=== PATIENT | male | born 1960 | race Caucasian/White ===

== ENCOUNTER 2019-06-14 18:05 | Emergency (ER) | payer BC ==
--- NOTE | 2019-06-14 19:03 | ED ---
Eye Problem HPI - General Chief complaint: Eye Problems Stated complaint: Blurred vision Time Seen by Provider: 06/14/19 18:23 Source: patient Mode of arrival: ambulatory Limitations: no limitations - History of Present Illness Initial comments: 58-year-old male patient presents to the emergency department today for evaluation of double and blurred vision. Patient states that he experiences whenever looking to the right. Patient states when he drives he can see double lines on the road. Patient states he has had some intermittent dizziness with this. Symptoms started on Wednesday. He denies any head injury or history of similar symptoms. States he did see a messaging architect on Wednesday who was unable to find a cause for his symptoms. Patient denies any headache, numbness, tingling, weakness to his extremities. States he is generally healthy with no chronic medical conditions. He does not take any medications. Patient has not seen a primary care physician for the last couple of years. Denies alcohol or drug use. Patient denies any recent rash, fever, chills, shortness breath, chest pain, abdominal pain, nausea, vomiting, diarrhea, constipation, back pain, hematuria, dysuria, urinary urgency, urinary frequency, or any other complaints. - Related Data Home Medications Medication Instructions Recorded Confirmed No Known Home Medications 06/14/19 06/14/19 Allergies Allergy/AdvReac Type Severity Reaction Status Date / Time No Known Allergies Allergy Verified 06/14/19 19:04 Review of Systems ROS Statement: Those systems with pertinent positive or pertinent negative responses have been documented in the HPI. ROS Other: All systems not noted in ROS Statement are negative. Past Medical History Past Medical History: No Reported History History of Any Multi-Drug Resistant Organisms: None Reported Additional Past Surgical History / Comment(s): dental surgery Past Psychological History: No Psychological Hx Reported Smoking Status: Current every day smoker Past Alcohol Use History: None Reported Past Drug Use History: None Reported General Exam Limitations: no limitations General appearance: alert, in no apparent distress, other (This is a well- developed, well-nourished adult male patient in no acute distress. Vital signs upon presentation are temperature 97.9F, pulse 102, respirations 20, blood pressure 131/74, pulse ox 97% on room air.) Eye exam: Present: normal appearance, PERRL, EOMI, nystagmus (Right horizontal gaze nystagmus). Absent: scleral icterus, conjunctival injection, periorbital swelling ENT exam: Present: normal exam, normal oropharynx, mucous membranes moist Respiratory exam: Present: normal lung sounds bilaterally. Absent: respiratory distress, wheezes, rales, rhonchi, stridor Cardiovascular Exam: Present: regular rate, normal rhythm, normal heart sounds. Absent: systolic murmur, diastolic murmur, rubs, gallop, clicks GI/Abdominal exam: Present: soft, normal bowel sounds. Absent: distended, tenderness, guarding, rebound, rigid Neurological exam: Present: alert, oriented X3, CN II-XII intact Psychiatric exam: Present: normal affect, normal mood Skin exam: Present: warm, dry, intact, normal color. Absent: rash Course Vital Signs 06/14/19 06/14/19 06/14/19 18:12 19:16 20:30 Temperature 97.9 F 98.1 F 97.8 F Pulse Rate 102 H 71 70 Respiratory 20 16 18 Rate Blood Pressure 131/74 108/60 121/70 O2 Sat by Pulse 97 99 97 Oximetry Medical Decision Making - Medical Decision Making 58-year-old male patient presented to the emergency department today for evaluation of monocular diplopia and intermittent dizziness. Physical examination does reveal right horizontal gaze nystagmus but is otherwise unremarkable. He is neurologically intact with no focal deficits. Labs reviewed and are unremarkable. EKG showed normal sinus rhythm. CT brain was obtained and showed no acute abnormalities. I did discuss findings and results with the patient. Be discharged home to follow-up with the primary care physician, discuss referral to neurology, discussed MRI. Return parameters were discussed in detail. He verbalizes understanding and agrees with this plan. - Lab Data Result diagrams: 06/14/19 19:05 06/14/19 19:05 Lab Results 06/14/19 06/14/19 Range/Units 19:05 19:05 WBC 11.2 H (3.8-10.6) k/uL RBC 4.89 (4.30-5.90) m/uL Hgb 14.9 (13.0-17.5) gm/dL Hct 45.1 (39.0-53.0) % MCV 92.2 (80.0-100.0) fL MCH 30.5 (25.0-35.0) pg MCHC 33.1 (31.0-37.0) g/dL RDW 12.3 (11.5-15.5) % Plt Count 239 (150-450) k/uL Neutrophils % 59 % Lymphocytes % 27 % Monocytes % 8 % Eosinophils % 2 % Basophils % 2 % Neutrophils # 6.6 (1.3-7.7) k/uL Lymphocytes # 3.0 (1.0-4.8) k/uL Monocytes # 0.9 (0-1.0) k/uL Eosinophils # 0.3 (0-0.7) k/uL Basophils # 0.2 (0-0.2) k/uL Sodium 141 (137-145) mmol/L Potassium 3.8 (3.5-5.1) mmol/L Chloride 105 (98-107) mmol/L Carbon Dioxide 27 (22-30) mmol/L Anion Gap 9 mmol/L BUN 10 (9-20) mg/dL Creatinine 0.89 (0.66-1.25) mg/dL Est GFR (CKD-EPI)AfAm >90 (>60 ml/min/1.73 sqM) Est GFR (CKD-EPI)NonAf >90 (>60 ml/min/1.73 sqM) Glucose 92 (74-99) mg/dL Calcium 9.3 (8.4-10.2) mg/dL Magnesium 2.1 (1.6-2.3) mg/dL Total Bilirubin 0.6 (0.2-1.3) mg/dL AST 21 (17-59) U/L ALT 18 L (21-72) U/L Alkaline Phosphatase 83 (38-126) U/L Total Protein 6.9 (6.3-8.2) g/dL Albumin 4.0 (3.5-5.0) g/dL - EKG Data -: EKG Interpreted by Al EKG Comments: EKG obtained at 1944 shows sinus rhythm with PACs, ventricular rate 73, CT interval 178, QRS duration 88, QT 398, QTC 438. No evidence of ST elevation or depression. - Radiology Data Radiology results: report reviewed, image reviewed CT brain without contrast was obtained. Report reviewed in its entirety. Impression by Dr. Morales shows No acute intracranial hemorrhage or midline shift. Orbits appear symmetric on CT. There is further concern this patient with visual change MRI would be recommended to evaluate for increased intracranial pressure orbital pathology. Disposition Clinical Impression: Diplopia Disposition: HOME SELF-CARE Condition: Good Instructions (If sedation given, give patient instructions): Diplopia (ED) Additional Instructions: Increase fluids. Follow-up with primary care physician for further evaluation and possible neurology referral. Return to the emergency department for any new, worsening, or concerning symptoms. Is patient prescribed a controlled substance at d/c from ED?: No Referrals: Mario Garcia MD [STAFF PHYSICIAN] - 1-2 days Time of Disposition: 20:14
[2019-06-14 19:19] LABS: Basophils # (A) 0.2 k/uL (0-0.2); Basophils % (A) 2 %; Eosinophils # (A) 0.3 k/uL (0-0.7); Eosinophils % (A) 2 %; HCT 45.1 % (39.0-53.0); HGB 14.9 gm/dL (13.0-17.5); Lymphocytes % (A) 27 %; MCH 30.5 pg (25.0-35.0); MCHC 33.1 g/dL (31.0-37.0); MCV 92.2 fL (80.0-100.0); Mean Platelet Volume 7.9; Monocytes # (A) 0.9 k/uL (0-1.0); Monocytes % (A) 8 %; Neutrophils # (A) 6.6 k/uL (1.3-7.7); Neutrophils % (A) 59 %; Platelet Count 239 k/uL (150-450); RBC 4.89 m/uL (4.30-5.90); RDW 12.3 % (11.5-15.5); WBC 11.2 k/uL (3.8-10.6)
[2019-06-14 19:28] LABS: ALT 18 U/L (21-72); AST 21 U/L (17-59); African American GFR (CKD) >90 (>60 ml/min/1.73 sqM); Alkaline Phosphatase 83 U/L (38-126); Anion Gap 9 mmol/L; Blood Urea Nitrogen 10 mg/dL (9-20); Calcium 9.3 mg/dL (8.4-10.2); Carbon Dioxide 27 mmol/L (22-30); Chloride 105 mmol/L (98-107); Glucose 92 mg/dL (74-99); Magnesium 2.1 mg/dL (1.6-2.3); Potassium 3.8 mmol/L (3.5-5.1); Sodium 141 mmol/L (137-145); Total Bilirubin 0.6 mg/dL (0.2-1.3); Total Protein 6.9 g/dL (6.3-8.2)
--- NOTE | 2019-06-14 19:56 | CT ---
EXAMINATION TYPE: CT brain wo con DATE OF EXAM: 06/14/2019 COMPARISON: None HISTORY: Blurry vision CT DLP: 1012.7 mGycm Automated exposure control for dose reduction was used. TECHNIQUE: CT scan of the head is performed without contrast. FINDINGS: There is no acute intracranial hemorrhage, mass effect, or midline shift identified. No s uspicious extra axial fluid collection is seen. The ventricles and sulci are within normal limits in size. There is scant mucosal thickening within the ethmoid sinuses. The globes are intact and the re maining visualized sinuses are clear. Lenses are symmetric and in place. Extraocular muscles are also symmetric. Optic nerves are unremarkable. No preseptal or post septal inflammatory fat stranding. IMPRESSION: 1. No acute intracranial hemorrhage or midline shift. 2. Orbits appear symmetric on CT. There is further concern in this patient with visual change MRI wou ld be recommended to evaluate for increased intracranial pressure or orbital pathology.
[2019-06-14 20:44] VITALS: BP 121/70; PULSE 70; RESP 18; TEMP 97.8
== END 2019-06-14 20:30 | disposition home or self-care (01) ==
LOC: EC 18:05
DX: H53.2 Diplopia (principal); H55.09 Other forms of nystagmus; F17.200 Nicotine dependence, unspecified, uncomplicated
CPT/HCPCS: 36415; 70450; 80053; 83735; 85025; 93005; 99284

== ENCOUNTER → 2024-07-17 | Outpatient (CLI) | payer MEDICARE ==
--- NOTE | 2024-07-17 15:45 | CTL ---
EXAMINATION TYPE: CT Low Dose Lung DATE OF EXAM ORDERED: 07/17/2024 COMPARISON: None CLINICAL INDICATION: Male, 63 years old with history of Z12.2 ENCNTR SCREEN FOR MALIGNANT NEOPLASM OF RE; PHH, Personal hx nicotine dependence 1 ppd x 44 years current smoker no concerns, Lung cancer s creening, History of Smoking/tobacco use. TECHNIQUE: Low dose computed tomography scan was performed through the chest at 1 mm thick sections a nd reconstructed images in multiple planes at 1 mm and [address] DLP: [address] CTDI: 1.95 mGy Automated exposure control for dose reduction was used. CT DIAGNOSTIC QUALITY: Satisfactory FINDINGS: There is no suspicious lung mass or nodule. There is no abnormal airspace consolidation or abnormal interstitial density. There is no pleural effusion or pneumothorax. The great vessels chest are normal and is no mediastinal, hilar or axillary adenopathy. Limited scanning through the upper abdomen reveals nonobstructing 7 mm left renal calcification. No focal osseous lesions are seen. IMPRESSION: 1. Lung RADS category 1 negative. Continue routine screening yearly intervals. 2. No acute cardiopulmonary disease. 3. Nonobstructing 7 mm left renal calcification. [facility], , 07/17/2024 3:43 PM
== END | disposition home or self-care (01) ==
LOC: RADCTMAIN 14:43
PROVIDERS: ATTEND Family Medicine
CPT/HCPCS: 71271

== ENCOUNTER → 2024-07-27 | Outpatient (CLI) | payer MEDICARE ==
--- NOTE | 2024-07-28 21:52 | XR ---
EXAMINATION TYPE: XR Hip Complete RT DATE OF EXAM: 07/27/2024 2:18 PM COMPARISON: None. CLINICAL INDICATION: Male, 63 years old with history of [id number] RT HIP/KNEE PAIN,LBP, TECHNIQUE: XR Hip Complete RT view(s) obtained. FINDINGS: Right femoral head articulates with the acetabulum. There is complete loss of joint space. Acetabular and femoral head spurring is present. There is sclerosis at the joint space. Superior acetabular spu r fracture is not excluded. Consider CT for additional evaluation. No additional areas suspicious fo r fracture IMPRESSION: 1. Superior acetabular spur fracture not excluded. Consider CT for additional evaluation. 2. Advanced degenerative right hip joint space changes [facility], , 07/28/2024 9:50 PM
--- NOTE | 2024-07-28 23:00 | XR ---
EXAMINATION TYPE: XR knee complete RT DATE OF EXAM: 07/27/2024 2:18 PM COMPARISON: None. CLINICAL INDICATION: Male, 63 years old with history of [id number] RT HIP/KNEE PAIN,LBP, TECHNIQUE: XR knee complete RT view(s) obtained. FINDINGS: Three-view right knee. Patellofemoral joint space is preserved. Medial and lateral compartments are p reserved. No joint effusion is evident. No acute fracture or dislocation. Large anterior superior pat ellar spur is noted. IMPRESSION: 1. No acute osseous abnormality right knee [facility], Workstation: [facility], 07/28/2024 10:58 PM
--- NOTE | 2024-07-28 23:02 | XR ---
EXAMINATION TYPE: XR lumbosacral spine min 4V DATE OF EXAM: 07/27/2024 2:18 PM COMPARISON: None. CLINICAL INDICATION: Male, 63 years old with history of [id number] RT HIP/KNEE PAIN,LBP, TECHNIQUE: XR lumbosacral spine min 4V view(s) obtained. FINDINGS: 5 view lumbar spine. Narrowing of the L4-5 L5-S1 disc height is present. Some spondylosis is present. No spondylolytic defects are evident. There 5 lumbar-type vertebral bodies. Pedicles are intact. Not e is made there may be a inferior pole left renal stone measuring 1.2 cm. IMPRESSION: 1. Mild degenerative disc changes lower lumbar spine 2. Possible left renal stone [facility], Workstation: [facility], 07/28/2024 10:59 PM
== END | disposition home or self-care (01) ==
LOC: RADXRYALE 13:50
PROVIDERS: ATTEND Physician Assistant
DX: M51.360 Other intervertebral disc degeneration, lumbar region with discogenic back pain only (principal); M16.11 Unilateral primary osteoarthritis, right hip; M25.561 Pain in right knee
CPT/HCPCS: 72110; 73502

== ENCOUNTER 2024-11-08 12:27 | Observation (INO) | payer MEDICARE ==
[~2024-11-08 12:27] MED LIST: TRANEXAMIC 1,000 MG/100ML-NACL 1,000 MG in SALINE 1 100ML.BAG IV PRN; TRANEXAMIC 1,000 MG/100ML-NACL 1,000 MG in SALINE 1 100ML.BAG IVPB PRN
[2024-11-08] MEDS ORDERED: HYDROmorphone 0.5 MG/0.5 ML SYRINGE IVP PRN ×4 (12:39→16:01)
[2024-11-08] MEDS: LACTATED RINGERS 1,000 ML IV ONE ×2 (12:52→15:50)
[2024-11-08] MEDS: oxyCODONE ER 10 MG TAB.ER.12H PO PRN (13:28)
[2024-11-08] MEDS: DOCUSATE 100 MG CAP PO PRN (13:28)
[2024-11-08] MEDS: ACETAMINOPHEN TAB 500 MG TAB PO PRN (13:29)
[2024-11-08] MEDS: LACTATED RINGERS 1,000 ML IV SCH (13:31)
[2024-11-08] MEDS: DEXAMETHASONE SOD PHOSPHATE 10 MG/ML 1 ML VIAL IV PRN (13:32)
[2024-11-08] MEDS: ONDANSETRON 4 MG/2 ML VIAL IVP PRN (13:32)
[2024-11-08] MEDS: KETOROLAC 15 MG/ML 1 ML VIAL IVP PRN (13:32)
[2024-11-08] MEDS: FAMOTIDINE 20 MG/2 ML VIAL IVP PRN (13:32)
[2024-11-08] MEDS: MIDAZOLAM 2 MG/2 ML VIAL IV ONE (13:41)
[2024-11-08] MEDS ORDERED: fentaNYL (PF) 50 MCG/ML 2 ML AMP ONE (14:01)
[2024-11-08] MEDS ORDERED: PHENYLEPHRINE 10 MG/ML VIAL ONE (14:01)
[2024-11-08] MEDS ORDERED: KETAMINE HCL IN 0.9 % NACL 50 MG/5 ML SYRINGE ONE (14:01)
[2024-11-08] MEDS ORDERED: PROPOFOL 10 MG/ML 20 ML VIAL IV ONE (14:01)
[2024-11-08] MEDS ORDERED: TRANEXAMIC 1,000 MG/100ML-NACL PREMIX BAG ONE (14:01)
[2024-11-08] MEDS ORDERED: GLYCOPYRROLATE 0.2 MG/ML 2 ML VIAL ONE (14:01)
[2024-11-08] MEDS ORDERED: ROCURONIUM 10 MG/ML (5 ML VIAL) IV ONE (14:01)
[2024-11-08] MEDS ORDERED: LIDOCAINE 1% INJ 10MG/ML (20 ML MDV) ONE (14:01)
[2024-11-08] MEDS ORDERED: SUCCINYLCHOLINE CHLORIDE 200 MG/10 ML VIAL IV ONE (14:01)
[2024-11-08] MEDS ORDERED: DEXAMETHASONE SOD PHOSPHATE 4 MG/ML 1 ML VIAL ONE (14:01)
[2024-11-08] MEDS ORDERED: NEOSTIGMINE 1 MG/ML 10 ML VIAL ONE (14:01)
[2024-11-08] MEDS ORDERED: ROPIVACAINE 5 MG/ML 30 ML VIAL ONE (14:01)
[2024-11-08] MEDS: ROPIVACAINE/EPI/CLONIDINE/KET 50 ML SYRINGE MISCELLANE PRN (14:38)
[2024-11-08] MEDS ORDERED: HYDROcodone/APAP 5-325MG 1 EACH TAB PO PRN (16:01)
[2024-11-08] MEDS ORDERED: MAGNESIUM HYDROXIDE 2,400 MG/30 ML CUP PO PRN (16:01)
[2024-11-08] MEDS ORDERED: diazePAM 5 MG TAB PO PRN ×2 (16:01)
[2024-11-08] MEDS ORDERED: TEMAZEPAM 15 MG CAP PO PRN (16:01)
[2024-11-08] MEDS ORDERED: NALOXONE 0.4 MG/ML 1 ML VIAL IV PRN (16:01)
[2024-11-08] MEDS ORDERED: hydrOXYzine pamoate 25 MG CAP PO PRN (16:01)
--- NOTE | 2024-11-08 16:01 | P.OP ---
Date of Procedure: 11/08/24 Preoperative Diagnosis: Severe right hip osteoarthritis Postoperative Diagnosis: Same Procedure(s) Performed: Right direct anterior total hip arthroplasty Implants: 1. Thomson Trident II Acetabular Cup, Size #54 2. Gwendolyn Insignia Size #6 Femoral Stem, High Offset 3. Biolox delta femoral head, 36 mm, +0 mm neck Anesthesia: GETA, regional Surgeon: Zachary Jerez Cone Winder #1: John Caballero Estimated Blood Loss (ml): 300 IV fluids (ml): 800 Pathology: none sent Condition: stable Disposition: PACU Indications for Procedure: I had a long discussion with the patient in the office on the potential risks and complications of an elective total hip replacement through a direct anterior approach. Risks discussed include, but are certainly not limited to, risks from anesthesia, superficial infection requiring local wound care or antibiotics, deep anna-prosthetic joint infection and the treatment required to eradicate infection, intraoperative fracture, postoperative periprosthetic fracture, damage to local blood vessels or nerves particularly the lateral femoral cutaneous nerve, delayed wound healing requiring local wound care or possibly surgical debridement, hip dislocation, leg length discrepancy, soft tissue irritation around the total hip implant such as iliopsoas tendinitis or trochanteric bursitis, wear and osteolysis from the implants, squeaking or audible noises, groin pain, thigh pain, heterotopic ossification, stiffness, aseptic loosening of the implants, dissatisfaction with surgical outcome, need for revision surgery, DVT, PE, swelling of the operative extremity, acute coronary event, stroke, failure to thrive, and possibly loss of life or limb. The patient understands that while these are the most common complications after an elective hip replacement there are certainly other less common complications possible. They were given ample time to ask questions regarding the potential complications of a hip replacement. Following our discussion the patient pro vided their verbal and written consent to go forward with an elective total hip replacement. The patient has a history of smoking. He was able to quit 3 months prior to surgery. He assured me that he has not been smoking for 3 months. He understands the ramifications if he resumes smoking particularly delayed wound healing and infection. He promised me he would not smoke in the postoperative period. Operative Findings: Severe right hip osteoarthritis. There were circumferential osteophytes surrounding the acetabulum. After the cup was placed the osteophytes were carefully removed. Description of Procedure: The patient was identified in the preoperative holding area and the correct hip was marked with my initials. I reviewed the procedure and consent with the patient. All of their questions were answered. The patient was then brought back into the operating room by anesthesia. While on the [facility] anesthesia was administered by the anesthesia team. Preoperative antibiotics and tranexamic acid were also given. After the patient was under anesthesia I examined their ankles to determine their preoperative leg length discrepancy. The skin over the anterior aspect of the hip was shaved to remove hair over the site of planned incision. Both feet and ankles were padded with webril and boots for the Rankin were applied. The patient was then carefully transferred onto the Rankin table. A perineal post was immediately placed. The arms were placed on arm holders and were well-padded. Both boots were secured to the spars on the Rankin table. The patient was positioned so that the pelvis was centered over the post. Nonsterile drapes were applied. A timeout was performed identifying the correct patient, operative extremity, and procedure. At this point fluoroscopy was brought in to take preoperative images of the pelvis and operative hip. Using the standing AP pelvis from the office as a template, a comparable image was obtained with fluoroscopy. A metallic bar was used to create a bi-ischial line for use as a reference to leg length adjustments during the procedure. Global offset was also measured on both the operative and nonoperative leg. Fluoroscopy was then brought out and a pre-scrub using a chlorhexidine scrub brush was performed. The operative limb was then prepped and draped in the standard sterile fashion. An anterior longitudinal incision was made lateral and distal to the ASIS. The skin and subcutaneous tissues were incised sharply. The underlying tensor fascia was identified and incised in its midportion. The fascia was dissected free from the underlying muscle and the muscle belly was retracted. A blunt tipped cobra retractor was placed over the superior neck under the muscle fibers of the gluteus minimus. The deep enveloping fascia of the tensor was incised. The anterior leash of vessels were then identified and cauterized. The fascia between the rectus and the capsule was then incised and the pre-capsular fat was excised. A second Cobra was placed inferior to the neck. The interval between the rectus and iliocapsularis and the hip capsule was developed and a retractor was placed carefully over the anterior rim of the acetabulum. A T-shaped anterior capsulotomy was performed. The superior capsular leaflet was left in place in the inferior capsular flap was excised. The Cobra retractors were placed intracapsularly. We then made a femoral neck osteotomy according to preoperative and intraoperative templating and confirmed the level of the osteotomy using fluoroscopic imaging. The femoral head was removed, passed off to the back table, and sized. The superior capsular flap was excised. Retractors were placed circumferentially exposing the acetabulum. We then circumferentially debrided the acetabulum free of labrum and osteophytes. The pulvinar was removed to fully visualize the cotyloid fossa. We then sequentially reamed to achieve peripheral fit and excellent bleeding subchondral bone. The socket was thoroughly irrigated. The acetabular component was impacted into the appropriate position using fluoroscopy to guide version, inclination, and depth of insertion taking care to have a comparable image of the AP pelvis to the standing image taken in the office. An excellent press-fit was achieved and final position was confirmed using fluoroscopy. The press fit was augmented with a bony cancellus dome screw. The liner was then impacted into the socket. Attention was then turned to the femur. The remnant dorsal lateral capsule was excised. The short external rotators were visible and protected. A bone hook was used to confirm appropriate translation of the trochanter away from the acetabulum. The leg was then extended and adducted and the bone hook was used to elevate the femur for broaching. A box osteotome and blunt tipped canal sound was then utilized to gain access to the femoral canal. We then sequentially broached the femur in appropriate anteversion until excellent torsional stability was achieved. The neck cut was brought flush to the trial broach with a calcar planar. A trial neck and head were then placed onto the broach and the hip was atraumatically reduced under direct visualization. External rotation to 90 was performed to assess stability. Fluoroscopy was brought in. An AP and lateral fluoroscopic image of the proximal femur was obtained to assess position and fill of the trial broach. An AP of the pelvis was then obtained and matched to the preoperative image taken. A bi-ischial bar was then placed and measurements were taken to assess changes in length and offset. The hip was then carefully dislocated, the proximal femur was exposed, and the trial implants were removed. The wound and proximal femur was thoroughly irrigated using sterile saline and pulsatile lavage. The final femoral implant was dispensed and gently tapped into place generating an excellent press-fit. The trunnion was cleansed and the final head was tapped into place to engage the Fontanez taper. The acetabulum was irrigated and visualized to be free of debris. The hip was carefully reduced. Stability was checked clinically with external rotation to 90 and there was no evidence of instability. Final fluoroscopic images were taken. The wound was then thoroughly irrigated and soaked with a dilute Betadine rinse for 3 minutes. 3 L of sterile saline was irrigated through the wound using pulsatile lavage. Local anesthetic cocktail was injected into the soft tissues around the surgical f ield. The wound was then closed in layers. A sterile dressing was placed over the surgical incision. The drapes were taken down and the patient was carefully transferred off of the Rankin table. Following removal of the boots the leg lengths felt acceptable. The patient was then taken to recovery room having tolerated the procedure well. John Caballero PA-C was required as a skilled assistant dean due to the complexity of surgery for patient positioning, draping, exposure, retraction, closure of wound and application of dressing. PLAN: The patient can weight-bear as tolerated on the operative extremity. 2 doses of postoperative antibiotics. DVT prophylaxis with aspirin 81 mg twice a day based on preoperative risk stratification. Physical therapy for gait training.
--- NOTE | 2024-11-08 16:22 | XR ---
Intraoperative/procedural fluoroscopic services were provided for right total hip arthroplasty. Total fluoroscopy time is 52.8 seconds with a total of 8 submitted images to PACS. Total DAP 3.7266 Gycm2. Please see the operative note for further details. [facility], , 11/08/2024 4:19 PM
[2024-11-08] MEDS: SODIUM CHLORIDE 0.9% 1,000 ML IV SCH (17:33)
[2024-11-08] MEDS: HYDROcodone/APAP 10-325MG 1 EACH TAB PO PRN (17:34)
--- NOTE | 2024-11-08 20:29 | P.HPIM ---
History of Present Illness H&P Date: 11/08/24 Chief Complaint: Right hip surgery Very pleasant 64-year-old patient who follows with Dr. Olga Lidia Bear. Patient has undergone right total hip arthroplasty. Postprocedure laying in bed. Pain controlled. No nausea vomiting. Denies any cardiac history. Gracie acosta has arthritis in other joints. Hyperlipidemia. And stopped smoking about 3 months ago. Denies any respiratory symptoms. Review of systems: GEN.: None EYES: None HEENT: None NECK: None RESPIRATORY: None CARDIOVASCULAR: None GASTROINTESTINAL: None GENITOURINARY: None MUSCULOSKELETAL: Multiple joint pains including the left hip e LYMPHATICS: None HEMATOLOGICAL: None PSYCHIATRY: None NEUROLOGICAL: None Social history: Lives with a friend, whose care patient takes off. Smoked a pack a day for close to 40 years. Stopped in July 2024. 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 Physical examination: VITAL SIGNS: 98.6, 79, 16, 1 4586, 97% room air GENERAL: BMI 29.5, awake laying in bed. EYES: Pupils equal. Conjunctiva shaniqua l. HEENT: External appearance of nose and ears normal, oral cavity grossly normal. A lot of facial hair in form of lee. NECK: JVD not raised; masses not palpable. HEART: First and second heart sounds are normal; no edema. LUNGS: Respiratory rate normal; clear to auscultation. ABDOMEN: Soft, nontender, liver spleen not palpable, no masses palpable. PSYCH: Alert and oriented x3; mood and affect shaniqua l. MUSCULOSKELETAL:No Clubbing/cyanosis;muscles-grossly intact. Dressing over the right thigh incision site. OA in other joints. NEUROLOGICAL: Cranial nerves grossly intact; no facial asymmetry, power and sensation grossly intact. LYMPHATICS: No lymph nodes palpable in the axilla and neck INVESTIGATIONS, reviewed in the clinical context: November 03, 2024: White count 11.7 hemoglobin 15.6 platelets 261 sodium 139 potassium 5.1 creatinine 1.0 Assessment plan: -Anterior, right total hip arthroplasty Aspirin 81 twice daily for DVT prophylaxis. Received IV cefazolin for infection prophylaxis. Analgesics in place. -Primary osteoarthritis of multiple joints. Also due for surgery in the left hip down the road. Pain medication as needed -Hyperlipidemia Lipitor Care was discussed with the patient. Questions answered. Thank you Dr. Jerez Past Medical History Past Medical History: Hyperlipidemia Additional Past Medical History / Comment(s): "right hip is worn out" History of Any Multi-Drug Resistant Organisms: None Reported Additional Past Surgical History / Comment(s): dental surgery, colonoscopy Past Anesthesia/Blood Transfusion Reactions: No Reported Reaction Past Psychological History: No Psychological Hx Reported Smoking Status: Former smoker Past Alcohol Use History: None Reported Additional Past Alcohol Use History / Comment(s): quit smoking 07/2024 - smoked ppd x 43 yrs. Past Drug Use History: None Reported Medications and Allergies Home Medications Medication Instructions Recorded Confirmed Type Atorvastatin [Lipitor] 20 mg PO HS 11/02/24 11/08/24 History Allergies Allergy/AdvReac Type Severity Reaction Status Date / Time No Known Allergies Allergy Verified 11/08/24 13:09 Physical Exam Vitals: Vital Signs Temp Pulse Pulse Resp BP Pulse Ox 11/08/24 17:53 98.6 F 79 16 145/86 97 11/08/24 17:04 82 18 150/99 96 11/08/24 16:49 79 17 160/85 100 11/08/24 16:34 79 14 126/65 99 11/08/24 16:19 97.8 F 89 12 141/75 98 11/08/24 13:46 70 16 142/82 99 11/08/24 13:03 98.6 F 72 16 154/81 98 Intake and Output 11/08/24 11/08/24 11/08/24 06:59 14:59 22:59 Intake Total 1050 640 Output Total 300 Balance 1050 340 Intake: IV 1050 200 Intake, IV Titration 200 Amount Sodium Chloride 0.9% 1, 200 000 ml @ 100 mls/hr IV . Q10H [facility] Rx#:[id number] Oral 240 Output: Estimated Blood Loss 300 Other: Weight 93.2 kg 93.2 kg Thrombosis Risk Factor Assmnt - Choose All That Apply Other Risk Factors: Yes Each Risk Factor Represents 2 Points: Age 61-74 years Each Risk Factor Represents 5 Points: Elective major lower extremity arthoplasty Thrombosis Risk Factor Assessment Total Risk Factor Score: 7 Thrombosis Risk Factor Assessment Level: High Risk
[2024-11-08] MEDS: SENNOSIDES-DOCUSATE SODIUM 1 EACH TAB PO SCH (21:20)
[2024-11-08] MEDS: ASPIRIN 81 MG PO SCH (21:20)
[2024-11-08] MEDS: ATORVASTATIN 20 MG TAB PO SCH (21:20)
--- NOTE | 2024-11-09 07:58 | P.PN ---
Subjective Doing relatively well this morning. He states that yesterday after surgery he had no pain likely due to the block and was walking around the [place]. During the night he reached over in bed and felt a minor pop in the hip. He had some increased pain but is doing well this morning. He has no other complaints. Objective - Vital Signs Vital signs: Vital Signs Temp 97.7 F 11/09/24 01:50 Pulse 84 11/09/24 01:50 Resp 18 11/09/24 01:50 BP 123/74 11/09/24 01:50 Pulse Ox 97 11/09/24 01:50 FiO2 Intake & Output 11/08/24 11/09/24 11/09/24 18:59 06:59 18:59 Intake Total 1690 480 Output Total 300 900 Balance 1390 -420 Weight 93.2 kg Intake: IV 1250 Intake, IV Titration 200 Amount Sodium Chloride 0.9% 1, 200 000 ml @ 100 mls/hr IV . Q10H [facility] Rx#:[id number] Oral 240 480 Output: Urine 900 Straight 900 Estimated Blood Loss 300 - Exam Patient is resting comfortably in bed. He is alert and able to answer questions. On inspection leg lengths appear symmetric. There is a dressing over the anterior aspect of the right hip. There is no drainage or strikethrough. There is mild swelling. Femoral nerve function is intact. The patient is able to actively plantarflex and dorsiflex his ankle and his toes. Assessment and Plan Assessment: Postoperative day #1 status post right direct anterior total hip arthroplasty Former smoker, quit 3 to 4 months ago Plan: 1. Weightbearing as tolerated on the operative extremity. Up with assistance and a walker. 2. DVT prophylaxis with aspirin 81 mg twice a day 3. Physical therapy for gait training and mobilization 4. Leave surgical dressing in place. 5. Internal medicine for perioperative medical management 6. Disposition: The patient lives alone and would like to discharge to subacute nursing or rehab. We discussed this would depend on how he does with physical therapy. We will see how he does today and make a decision on discharge tomorrow. He understands the possibility of going home with home health care as he is doing relatively well at this time.
[2024-11-09 08:53] LABS: HCT 35.3 % (39.6-50.0); HGB 11.9 g/dL (13.0-17.0); MCH 31.5 pg (27.0-32.0); MCHC 33.7 g/dL (32.0-37.0); MCV 93.4 FL (80.0-97.0); Mean Platelet Volume 11.7 FL (9.5-12.2); NRBC Per 100 WBC 0 X 10*3/uL (0.00-0.01); Platelet Count 230 X 10*3/uL (140-440); RBC 3.78 X 10*6/uL (4.40-5.60); RDW 12.3 % (11.5-14.5); WBC 23.02 X 10*3/uL (4.50-10.00)
[2024-11-09 10:00] LABS: Basophils # (A) 0.04 X 10*3/uL (0.00-0.10); Basophils % (A) 0.2 %; Eosinophils # (A) 0.09 X 10*3/uL (0.04-0.35); Eosinophils % (A) 0.4 %; Lymphocytes # (A) 1.14 X 10*3/uL (0.90-5.00); Monocytes # (A) 1.75 X 10*3/uL (0.20-1.00); Monocytes % (A) 7.6 %; Neutrophils # (A) 19.77 X 10*3/uL (1.80-7.70); Neutrophils % (A) 85.8 %
[2024-11-09] MEDS: MULTIVITAMINS, THERA 1 EACH TAB PO SCH (11:02)
--- NOTE | 2024-11-09 17:25 | P.ANPRN ---
Procedure Note - Anesthesia - Nerve Block Performed Right Flores Single Time Out Performed: Yes Date of Procedure: 11/08/24 Procedure Start Time: 13:40 Procedure Stop Time: 13:46 Location of Patient: PreOp Indication: Acute Post-Operative Pain, Requested by Surgeon Sedation Type: Sedate with meaningful contact maintained Preparation: Sterile Prep Position: Supine Needle Types: Pajunk Needle Gauge: 21 Ultrasound used to visualize needle placement: Yes Ultrasound used to observe medication spread: Yes Blood Aspirated: No Pain Paresthesia on Injection Noted: No Resistance on Injection: Normal Image Stored and Saved: Yes Events: Uneventful and Well Tolerated (Ropivacaine 0.5% 20 cc was dexamethasone 4 mg)
--- NOTE | 2024-11-09 17:36 | P.PN ---
Progress Note - Text Progress Note Date: 11/09/24 Chief Complaint: Right hip surgery Very pleasant 64-year-old patient who follows with Dr. Olga Lidia Bear. Patient has undergone right total hip arthroplasty. Postprocedure laying in bed. Pain controlled. No nausea vomiting. Denies any cardiac history. Patient has arthritis in other joints. Hyperlipidemia. And stopped smoking about 3 months ago. Denies any respiratory symptoms. November 09: Did ambulate. Pain is present. Tolerated diet. No dizziness no lightheadedness. Active Medications Hydrocodone Bitart/Acetaminophen (Hydrocodone/Apap 5-325mg 1 Each Tab) 1 each PO Q6HR PRN PRN Reason: Pain Scale 1 to 5 Stop: 12/08/24 16:00 Hydrocodone Bitart/Acetaminophen (Hydrocodone/Apap 10-325mg 1 Each Tab) 1 each PO Q6H PRN PRN Reason: Pain Scale 6 to 10 Stop: 12/08/24 16:00 Last Admin: 11/09/24 11:02 Dose: 1 each Aspirin (Aspirin 81 Mg) 81 mg PO BID [facility] Stop: 12/08/24 20:59 Last Admin: 11/09/24 08:10 Dose: 81 mg Atorvastatin Calcium (Atorvastatin 20 Mg Tab) 20 mg PO HS [facility] Last Admin: 11/08/24 21:20 Dose: 20 mg Diazepam (Diazepam 5 Mg Tab) 2.5 mg PO Q8HR PRN PRN Reason: Mild Spasms Stop: 12/08/24 16:00 Diazepam (Diazepam 5 Mg Tab) 5 mg PO Q8HR PRN PRN Reason: Moderate to Severe Spasms Stop: 12/08/24 16:00 Hydromorphone HCl (Hydromorphone 0.5 Mg/0.5 Ml Syringe) 0.125 mg IVP Q3HR PRN PRN Reason: Pain Scale 1 to 3 Stop: 12/08/24 16:00 Hydromorphone HCl (Hydromorphone 0.5 Mg/0.5 Ml Syringe) 0.5 mg IVP Q3HR PRN PRN Reason: Pain Scale 7 to 10 Stop: 12/08/24 16:00 Hydromorphone HCl (Hydromorphone 0.5 Mg/0.5 Ml Syringe) 0.25 mg IVP Q3HR PRN PRN Reason: Pain Scale 4 to 6 Stop: 12/08/24 16:00 Hydroxyzine Pamoate (Hydroxyzine Pamoate 25 Mg Cap) 25 mg PO Q4HR PRN PRN Reason: Nausea, Anxiety, Pain Control Stop: 12/08/24 16:00 Lactated Ringer's (Lactated Ringers) 1,000 mls @ 20 mls/hr IV .Q24H [facility] Stop: 12/08/24 12:38 Last Admin: 11/09/24 12:45 Dose: Not Given Sodium Chloride (Saline 0.9%) 1,000 mls @ 100 mls/hr IV .Q10H [facility] Stop: 12/08/24 16:14 Last Admin: 11/09/24 12:45 Dose: Not Given Magnesium Hydroxide (Magnesium Hydroxide 2,400 Mg/30 Ml Cup) 2,400 mg PO DAILY PRN PRN Reason: Constipation Stop: 12/08/24 16:00 Multivitamins (Multivitamins, Thera 1 Each Tab) 1 each PO DAILY@1200 [facility] Stop: 12/09/24 11:59 Last Admin: 11/09/24 11:02 Dose: 1 each Naloxone HCl (Naloxone 0.4 Mg/Ml 1 Ml Vial) 0.2 mg IV Q2M PRN PRN Reason: Opioid Reversal Stop: 12/08/24 16:00 Senna/Docusate Sodium (Sennosides-Docusate Sodium 1 Each Tab) 2 each PO HS [facility] Stop: 12/08/24 20:59 Last Admin: 11/08/24 21:20 Dose: 2 each Temazepam (Temazepam 15 Mg Cap) 15 mg PO HS PRN PRN Reason: Insomnia Stop: 12/08/24 16:00 Social history: Lives with a friend, whose care patient takes off. Smoked a pack a day for close to 40 years. Stopped in July 2024. 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 Physical examination: VITAL SIGNS: 98.1, 76, 16, 124/74, 97% room air GENERAL: BMI 29.5, awake laying in bed. EYES: Pupils equal. Conjunctiva shaniqua l. HEENT: External appearance of nose and ears normal, oral cavity grossly normal. A lot of facial hair in form of lee. NECK: JVD not raised; masses not palpable. HEART: First and second heart sounds are normal; no edema. LUNGS: Respiratory rate normal; clear to auscultation. ABDOMEN: Soft, nontender, liver spleen not palpable, no masses palpable. PSYCH: Alert and oriented x3; mood and affect shaniqua l. MUSCULOSKELETAL:No Clubbing/cyanosis;muscles-grossly intact. Dressing over the right thigh incision site. OA in other joints. INVESTIGATIONS, reviewed in the clinical context: November 09: White count 23.0 hemoglobin 11.9 platelets 230 November 03, 2024: White count 11.7 hemoglobin 15.6 platelets 261 sodium 139 potassium 5.1 creatinine 1.0 Assessment plan: -Anterior, right total hip arthroplasty Aspirin 81 twice daily for DVT prophylaxis. Received IV cefazolin for infection prophylaxis. Analgesics in place. -Acute postprocedure blood loss anemia expected from surgery IV Ferrlecit. Oral iron -Leukocytosis, likely reactive from surgery. No clinical evidence of infection Denies any respiratory/urinary symptoms -Primary osteoarthritis of multiple joints. Also due for surgery in the left hip down the road. Pain medication as needed -Hyperlipidemia Lipitor Discussed Thank you Dr. Jerez Past Medical History Past Medical History: Hyperlipidemia Additional Past Medical History / Comment(s): "right hip is worn out" History of Any Multi-Drug Resistant Organisms: None Reported Additional Past Surgical History / Comment(s): dental surgery, colonoscopy Past Anesthesia/Blood Transfusion Reactions: No Reported Reaction Past Psychological History: No Psychological Hx Reported Smoking Status: Former smoker Past Alcohol Use History: None Reported Additional Past Alcohol Use History / Comment(s): quit smoking 07/2024 - smoked ppd x 43 yrs. Past Drug Use History: None Reported
[2024-11-09] MEDS: SODIUM FERRIC GLUCONAT-SUCROSE 125 MG in SODIUM CHLORIDE 0.9% 100 ML IVPB SCH (17:58)
[2024-11-09 19:58] VITALS: RESP 18
[2024-11-10 03:38] LABS: Basophils # (A) 0.1 k/uL (0-0.2); Basophils % (A) 0 %; Eosinophils # (A) 0.1 k/uL (0-0.7); Eosinophils % (A) 0 %; HCT 33.7 % (39.0-53.0); HGB 11.4 gm/dL (13.0-17.5); Lymphocytes # (A) 2.7 k/uL (1.0-4.8); Lymphocytes % (A) 16 %; MCH 31.9 pg (25.0-35.0); MCHC 33.8 g/dL (31.0-37.0); MCV 94.6 fL (80.0-100.0); Mean Platelet Volume 8.7; Monocytes # (A) 1.8 k/uL (0-1.0); Monocytes % (A) 11 %; Neutrophils # (A) 11.5 k/uL (1.3-7.7); Neutrophils % (A) 70 %; Platelet Count 211 k/uL (150-450); RBC 3.57 m/uL (4.30-5.90); RDW 12.6 % (11.5-15.5); WBC 16.3 k/uL (3.8-10.6)
[2024-11-10 04:12] LABS: African American GFR (CKD) >90 (>60 ml/min/1.73 sqM); Anion Gap 5 mmol/L; Blood Urea Nitrogen 25 mg/dL (9-20); Calcium 8.9 mg/dL (8.4-10.2); Carbon Dioxide 27 mmol/L (22-30); Chloride 105 mmol/L (98-107); Glucose 115 mg/dL (74-99); Non-African American GFR(CKD) >90 (>60 ml/min/1.73 sqM); Potassium 4.2 mmol/L (3.5-5.1); Sodium 137 mmol/L (137-145)
[2024-11-10 07:55] VITALS: BP 118/72; PULSE 76; TEMP 98
--- NOTE | 2024-11-10 09:21 | P.DS ---
Providers Date of admission: 11/08/24 12:28 Attending physician: Zachary Jerez Consults: 11/08/24 17:50 Consult Physician Routine Consulting Provider: Jose Luis Reynoso Consult Reason/Comments: post op medical management Do you want consulting provider notified?: Yes Primary care physician: Olga Lidia Bear MD Hospital Course: This is a 64-year-old patient, with past medical history of severe right hip osteoarthritis, who failed nonsurgical conservative management. On 11/08/2024 the patient presented to the [facility] pre-op department for scheduled right direct anterior total hip arthroplasty with Dr. Jerez. The patient tolerated the procedure well. The patient was transferred to the orthopedic floor. The patient had no acute events over night. The patient's pain has been well-controlled. Patient was examined at bedside this morning. Patient is resting comfortably in bed. No apparent distress. They are awake, alert and able to answer questions. On inspection the right surgical hip dressing is intact, there is no drainage or strikethrough. The skin surrounding the dressing is free of erythema. There is mild swelling in the operative thigh. Operative femoral nerve function is intact. The operative calf is soft to compression. The patient is able to actively plantarflex and dorsiflex their operative ankle and toes. Their operative foot appears well perfused with capillary refill under 2 seconds. Start form completed and placed in the patient's chart. Walker order signed and placed in the patient's chart. Patient worked with physical therapy and it was determined they could discharge home. Plan to discharge home today. Plan follow up in two weeks in our office. Please see med rec for a list of accurate medications. Assessment: Status post right total hip arthroplasty for severe right hip osteoarthritis Right hip pain Plan - Discharge Summary Discharge Rx Participant: No New Discharge Prescriptions: New HYDROcodone/APAP 5-325MG [Bel[place] 5] 1 - 2 each PO Q6HR PRN #48 tab PRN Reason: Pain Omeprazole 20 mg PO DAILY #30 tab Sennosides-Docusate Sodium [Senokot-S] 1 tab PO BID PRN #60 tablet PRN Reason: Constipation Diclofenac Sodium [Voltaren] 75 mg PO BID PRN #60 tab PRN Reason: Pain Aspirin 81 mg PO BID #60 tab No Action Atorvastatin [Lipitor] 20 mg PO HS Discharge Medication List Atorvastatin [Lipitor] 20 mg PO HS 11/02/24 [History] Aspirin 81 mg PO BID #60 tab 11/10/24 [Rx] Diclofenac Sodium [Voltaren] 75 mg PO BID PRN #60 tab 11/10/24 [Rx] HYDROcodone/APAP 5-325MG [[place] 5] 1 - 2 each PO Q6HR PRN #48 tab 11/10/24 [Rx] Omeprazole 20 mg PO DAILY #30 tab 11/10/24 [Rx] Sennosides-Docusate Sodium [Senokot-S] 1 tab PO BID PRN #60 tablet 11/10/24 [Rx] Follow up Appointment(s)/Referral(s): Zachary Jerez MD [Medical Doctor] - 2 Weeks Activity/Diet/Wound Care/Special Instructions: 1. Weight-bear as tolerated on your operative extremity unless instructed otherwise. Use a walker or other assistive device to ambulate. 2. Leave surgical dressing in place. If your dressing becomes saturated with blood, there is drainage, or the dressing becomes loose please contact the office. 3. It is okay to shower with your surgical dressing, but do not submerge in water (no hot tubs, bath's, swimming etc.) 4. Take your blood clot prevention medication as prescribed (aspirin, Eliquis, Xarelto, and Plavix are commonly prescribed medications for blood clot prevention) 5. While taking Belgrade or Percocet for pain take a stool softener (Ex: Colace) and drink lots of water. 6. Keep all follow-up appointments as scheduled. You will usually be seen in 1-2 weeks following surgery. 7. Please contact the office with any questions or concerns [phone] Discharge Disposition: HOME SELF-CARE
[2024-11-10] MEDS ORDERED: FERROUS SULFATE 325 MG TAB PO SCH (12:30)
--- NOTE | 2024-11-10 14:16 | P.PN ---
Progress Note - Text Progress Note Date: 11/10/24 Chief Complaint: Right hip surgery Very pleasant 64-year-old patient who follows with Dr. Olga Lidia Bear. Patient has undergone right total hip arthroplasty. Postprocedure laying in bed. Pain controlled. No nausea vomiting. Denies any cardiac history. Patient has arthritis in other joints. Hyperlipidemia. And stopped smoking about 3 months ago. Denies any respiratory symptoms. November 09: Did ambulate. Pain is present. Tolerated diet. No dizziness no lightheadedness. November 10: Doing well. Pain controlled. Tolerating diet. No new issues. Discussed. Patient to follow-up with PCP. Social history: Lives with a friend, whose care patient takes off. Smoked a pack a day for close to 40 years. Stopped in July 2024. 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 Physical examination: VITAL SIGNS: 98, 76, 18, 118 x 72, 97% room air GENERAL: BMI 29.5, sitting up comfortable EYES: Pupils equal. Conjunctiva shaniqua l. HEENT: External appearance of nose and ears normal, oral cavity grossly normal. A lot of facial hair in form of lee. NECK: JVD not raised; masses not palpable. HEART: First and second heart sounds are normal; no edema. LUNGS: Respiratory rate normal; clear to auscultation. ABDOMEN: Soft, nontender, liver spleen not palpable, no masses palpable. PSYCH: Alert and oriented x3; mood and affect shaniqua l. MUSCULOSKELETAL:No Clubbing/cyanosis;muscles-grossly intact. Dressing over the right thigh incision site. OA in other joints. INVESTIGATIONS, reviewed in the clinical context: November 10: White count 16.3 hemoglobin 11.4 potassium 4.2 November 09: White count 23.0 hemoglobin 11.9 platelets 230 November 03, 2024: White count 11.7 hemoglobin 15.6 platelets 261 sodium 139 potassium 5.1 creatinine 1.0 Assessment plan: -Anterior, right total hip arthroplasty Aspirin 81 twice daily for DVT prophylaxis. Received IV cefazolin for infection prophylaxis. Analgesics in place. -Acute postprocedure blood loss anemia expected from surgery Received 2 doses of IV Ferrlecit. Oral iron -Leukocytosis, likely reactive from surgery. No clinical evidence of infection: Improving Denies any respiratory/urinary symptoms -Primary osteoarthritis of multiple joints. Also due for surgery in the left hip down the road. Pain medication as needed -Hyperlipidemia Lipitor Follow-up with PCP upon discharge Thank you Dr. Jerez Past Medical History Past Medical History: Hyperlipidemia Additional Past Medical History / Comment(s): "right hip is worn out" History of Any Multi-Drug Resistant Organisms: None Reported Additional Past Surgical History / Comment(s): dental surgery, colonoscopy Past Anesthesia/Blood Transfusion Reactions: No Reported Reaction Past Psychological History: No Psychological Hx Reported Smoking Status: Former smoker Past Alcohol Use History: None Reported Additional Past Alcohol Use History / Comment(s): quit smoking 07/2024 - smoked ppd x 43 yrs. Past Drug Use History: None Reported
== END 2024-11-10 13:09 | disposition home or self-care (01) ==
LOC: OR 12:27 → 4SSUR 12:28 → OR 12:28 → 4SSUR 16:09
PROVIDERS: ADMIT Orthopaedic Surgery; ATTEND Orthopaedic Surgery
DX: M16.11 Unilateral primary osteoarthritis, right hip (principal); D62 Acute posthemorrhagic anemia; M25.751 Osteophyte, right hip; E78.5 Hyperlipidemia, unspecified; D72.829 Elevated white blood cell count, unspecified; Z79.899 Other long term (current) drug therapy; Z87.891 Personal history of nicotine dependence
CPT/HCPCS: 27130; 97161; 97530; 97166; 64473; 80048; 85025 ×2; 73501; G0378 ×2; C1776; J2250; J0330; J1100 ×2; J2710; J0690 ×2; J2405; J2003; J3010; J3490; J2916 ×2; J2795; J1885; J2704; J2371; J1596; 64999